=== PATIENT | male | born 1995 | race Two or more races ===

== ENCOUNTER → 2025-01-19 | Outpatient (CLI) | payer MEDICAID, SELFPAY ==
--- NOTE | 2025-01-19 | XR_ITS ---
Examination: PA lateral chest 2 views TECHNIQUE: Upright PA lateral chest 2 views Exam date and time: February 18, 2025 1310 hours INDICATIONS: Positive TB skin test FINDINGS: Normal heart size Lungs are clear. Intact osseous structures IMPRESSION: No active disease No radiographic findings of tuberculosis
== END | disposition home or self-care (01) ==
PROVIDERS: PCP Family Medicine; Referring Provider Nurse Practitioner Family; Visit Provider Nurse Practitioner Family
DX: R76.12 Nonspecific reaction to cell mediated immunity measurement of gamma interferon antigen response without active tuberculosis (principal)
CPT/HCPCS: 71046